=== PATIENT | male | born 1975 | race Asian ===

== ENCOUNTER 2019-02-19 09:50 | Emergency (ER) | payer OTHER ==
[~2019-02-19] VITALS: Ht 175.3 cm; Wt 86.2 kg
[2019-02-19] MEDS ORDERED: IBUPROFEN800 MG PO (10:38)
[2019-02-19] MEDS ORDERED: KEFLEX500 MG PO (10:38)
== END 2019-02-19 11:25 | disposition home or self-care (01) ==
LOC: ED 09:50
PROC: 0XQMXZZ Repair Left Thumb, External Approach (ICD-10-PCS; principal; 2019-02-19)
DX: S62.525A Nondisplaced fracture of distal phalanx of left thumb, initial encounter for closed fracture (principal); S61.012A Laceration without foreign body of left thumb without damage to nail, initial encounter; F17.200 Nicotine dependence, unspecified, uncomplicated; W27.0XXA Contact with workbench tool, initial encounter
CPT/HCPCS: 12002; 73140; 90471; 90715; 99283-25

== ENCOUNTER 2019-02-21 16:21 | Emergency (ER) | payer OTHER ==
[~2019-02-21] VITALS: Ht 175.3 cm; Wt 86.2 kg
[~2019-02-21 16:21] MED LIST: IBUPROFEN800 MG PO; KEFLEX500 MG PO
--- OUTSIDE RECORDS SUMMARY | 2019-02-21 16:24 | XMS ---
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 Nighat has no Care Guidelines for this patient. [facility] MO[facility] NOTE: Visits indicate total known visits. ED/C VISIT TRACKING (12 MO.) 02/21/2019 16:22 [facility] [place] TYPE: Emergency COMPLAINT: - L THUMB PAIN 02/19/2019 09:51 [facility] [place] TYPE: Emergency COMPLAINT: - L THUMB LAC/INJURY INPATIENT VISIT TRACKING (12 MO.) No inpatient visits to display in this time frame [email or web address]
== END 2019-02-21 18:55 | disposition home or self-care (01) ==
LOC: ED 16:21
DX: S61.019D Laceration without foreign body of unspecified thumb without damage to nail, subsequent encounter (principal); F17.200 Nicotine dependence, unspecified, uncomplicated
CPT/HCPCS: 99282

== ENCOUNTER 2019-02-25 17:15 | Emergency (ER) | payer OTHER ==
[~2019-02-25] VITALS: Ht 175.3 cm; Wt 86.2 kg
--- OUTSIDE RECORDS SUMMARY | 2019-02-25 17:18 | XMS ---
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 Nighat has no Care Guidelines for this patient. Gregorio VISIT COUNT (12 MO.) [address] [facility] TOTAL 3 NOTE: Visits indicate total known visits. ED/C VISIT TRACKING (12 MO.) 02/25/2019 17:16 [facility] [place] TYPE: Emergency COMPLAINT: - L THUMB PAIN 02/21/2019 16:22 [facility] [place] TYPE: Emergency COMPLAINT: - L THUMB PAIN DIAGNOSES: - Nicotine dependence, unspecified, uncomplicated - Laceration without foreign body of unspecified thumb without damage to nail, subsequent encounter 02/19/2019 09:51 [facility] [place] TYPE: Emergency COMPLAINT: - L THUMB LAC/INJURY DIAGNOSES: - Nicotine dependence, unspecified, uncomplicated - Contact with workbench tool, initial encounter - Laceration without foreign body of left thumb without damage to nail, initial encounter - Nondisplaced fracture of distal phalanx of left thumb, initial encounter for closed fracture INPATIENT VISIT TRACKING (12 MO.) No inpatient visits to display in this time frame [email or web address]
== END 2019-02-25 20:34 | disposition home or self-care (01) ==
LOC: ED 17:15
DX: S61.012D Laceration without foreign body of left thumb without damage to nail, subsequent encounter (principal); F17.200 Nicotine dependence, unspecified, uncomplicated
CPT/HCPCS: 99282